=== PATIENT | male | born 1980 | race Caucasian/White ===

== ENCOUNTER 2017-06-09 20:02 | Emergency (ER) | payer SELFPAY ==
[~2017-06-09] VITALS: Ht 172.7 cm; Wt 93.0 kg
[2017-06-09] MEDS ORDERED: PROZAC (20:20)
--- NOTE | 2017-06-09 20:26 | NUR ---
Patient discharged to home in stable conditon. Written and verbal after care instructions given. Patient verbalizes understanding of instructions. Ambulated from ER with stable gait. All belongings with patient.
[2017-06-09 20:28] VITALS: BP 118/78
[2017-06-09] MEDS ORDERED: CLINDAMYCIN HCL 150 MG CAPSULE PO ONE (20:30)
[2017-06-09] MEDS ORDERED: CLINDAMYCIN HCL 300 MG CAPSULE ONE (20:36)
== END 2017-06-09 20:29 | disposition home or self-care (01) ==
LOC: ER 20:05
DX: K04.7 Periapical abscess without sinus (principal); F17.200 Nicotine dependence, unspecified, uncomplicated
CPT/HCPCS: A4663